=== PATIENT | male | born 1985 | race Caucasian/White ===

== ENCOUNTER 2016-09-25 19:28 | Emergency (ER) | payer OTHER ==
[2016-09-25 19:36] VITALS: BP 125/88
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
--- NOTE | 2016-09-25 22:47 | RAD ---
INDICATION: Right knee pain COMPARISON: None TECHNIQUE: AP and lateral views were obtained. FINDINGS: There are no acute bony findings. There is mild patellofemoral osteoarthritis. The medial and lateral joint spaces appear preserved. There is no significant effusion. IMPRESSION: MILD PATELLOFEMORAL OSTEOARTHRITIS
== END 2016-09-25 22:59 | disposition home or self-care (01) ==
LOC: ED 19:28
DX: M25.561 Pain in right knee (principal); I10 Essential (primary) hypertension; J45.909 Unspecified asthma, uncomplicated; F90.9 Attention-deficit hyperactivity disorder, unspecified type; F41.9 Anxiety disorder, unspecified; F31.9 Bipolar disorder, unspecified; Z86.19 Personal history of other infectious and parasitic diseases; F17.210 Nicotine dependence, cigarettes, uncomplicated
CPT/HCPCS: 99281

== ENCOUNTER 2016-10-09 23:53 | Inpatient (IN) | payer MEDICAID, OTHER ==
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
[2016-10-10 01:15] LABS: Hematocrit 42 % (42-52); Hemoglobin 13.9 g/dl (14.0-18.0); Mean Corpuscular HGB Conc 33 g/dl (31-36); Mean Corpuscular Hemoglobin 28 pg (27-31); Mean Corpuscular Volume 84 fL (80-94); Mean Platelet Volume 9 um3 (7.4-10.4); Red Blood Count 5.02 10^6/ul (4.0-5.4); Red Cell Distribution Width 15 % (10.5-15); White Blood Count 8.1 10^3/ul (3.5-10.8)
[2016-10-10 01:29] LABS: Urine Bilirubin Negative (Negative); Urine Glucose Negative (Negative); Urine Nitrite Negative (Negative)
[2016-10-10 01:32] LABS: ALT 66 U/L (7-52); AST 51 U/L (13-39); Acetaminophen < 15 mcg/mL; Albumin 4.3 g/dL (3.2-5.2); Alcohol < 10 mg/dL (<10); Alkaline Phosphatase 82 U/L (34-104); Anion Gap 6 mmol/L (2-11); Blood Urea Nitrogen 12 mg/dL (6-24); CO2 Carbon Dioxide 27 mmol/L (22-32); Calcium 9.4 mg/dL (8.6-10.3); Chloride 99 mmol/L (101-111); EGFR African American 123.4 (>60); Globulin 3.8 g/dL (2-4); Glucose 95 mg/dL (70-100); Salicylate < 2.50 mg/dL (<30); Sodium 132 mmol/L (133-145); Total Protein 8.1 g/dL (6.4-8.9)
[2016-10-10 01:42] LABS: TSH (Thyroid Stimulating Horm) 1.75 mcIU/mL (0.34-5.60)
[2016-10-10 01:44] LABS: Benzodiazepine Urine Screen None Detected (None Detect)
[2016-10-10] MEDS ORDERED: Mouth Piece, Nicotine* 1 EACH CARTRIDGE ONE (06:06)
[2016-10-10] MEDS: Nicotine Inhaler* 10 MG AMP INH PRN ×2 (06:10→07:46)
[2016-10-10] MEDS: ARIPiprazole TAB* 2 MG PO SCH (07:42)
[2016-10-10] MEDS: Sertraline* 100 MG TAB PO SCH (07:42)
[2016-10-10] MEDS: Lithium Carbonate ER* 450 MG TAB.ER PO SCH ×2 (07:43→22:49)
[2016-10-10] MEDS: cloNIDine TAB* 0.1 MG PO SCH ×3 (07:43→22:49)
[2016-10-10] MEDS: Gabapentin CAP(*) 400 MG PO SCH ×3 (07:45→17:25)
[2016-10-10] MEDS ORDERED: Loperamide CAP* 2 MG PO PRN (13:26)
[2016-10-10] MEDS ORDERED: Ondansetron TAB* 4 MG PO PRN (13:27)
[2016-10-10] MEDS ORDERED: Ibuprofen TAB* 800 MG PO PRN (13:27)
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
[2016-10-10] MEDS ORDERED: Gabapentin CAP(*) 400 MG PO SCH (21:00)
[2016-10-11] MEDS: Nicotine Inhaler* 10 MG AMP INH PRN (08:08)
[2016-10-11] MEDS: Lithium Carbonate ER* 450 MG TAB.ER PO SCH (08:09)
[2016-10-11] MEDS: cloNIDine TAB* 0.1 MG PO SCH (08:09)
[2016-10-11] MEDS: Sertraline* 100 MG TAB PO SCH (08:09)
[2016-10-11] MEDS: ARIPiprazole TAB* 2 MG PO SCH (08:09)
[2016-10-11] MEDS: Gabapentin CAP(*) 400 MG PO SCH (08:11)
[2016-10-11 08:18] VITALS: BP 104/59
--- NOTE | 2016-10-11 17:08 | DS ---
DISCHARGE SUMMARY: DATE OF ADMISSION: 10/10/16 DATE OF DISCHARGE: 10/11/16 DISCHARGE DIAGNOSES: Eagle I: Malingering, substance-induced mood disorder, opioid use disorder, alcohol use disorder. Eagle II: Antisocial personality traits. Eagle III: History of hepatitis C, femur fracture in 2004, chronic tendinitis in ankles and neck, degenerative disk disease, history of seizure disorder. Eagle IV: Severe primary support and legal stressors. Eagle V: At the time of admission was 34 and at the time of discharge is 49. CONDITION AT THE TIME OF DISCHARGE: Improved. The patient is no longer endorsing suicidal ideations. He is requesting release and stating that he will follow up with the [facility] He will also follow up with his outpatient psychiatrist Dr. Linda Member and his outpatient primary care provider Dr. Jaelyn Gao. Justification for the discharge is that it appears the patient was using this hospitalization for secondary gain in order to attempt to be placed back on opioid pain relief therapy. When it was clear that this treatment would not be provided to him, he immediately requested discharged and recanted all claims of suicidality. MENTAL STATUS EXAM: At the time of discharge, the patient is a young white male with thick rimmed glasses and a stylish haircut, who is somewhat disheveled , wearing jeans and a T-shirt. He appears to be somatic and in some physical discomfort. The patient is cooperative; however, his speech has normal rate, tone, and volume. Mood is euthymic with a full affect. Thought process is linear and goal directed. Thought content is significant for somatic complaints. He is denying suicidal ideations, denying homicidal ideations. Insight and judgment are limited given his somewhat dismissive attitude towards inpatient substance abuse rehab. Cognitively, he is awake and alert with what would appear to be an average intellect. DISCHARGE INSTRUCTIONS: To the patient are as follows: A. Medications: The patient is to continue taking gabapentin 800 mg p.o. b.i.d. and 1600 mg p.o. q.h.s., lithium carbonate extended release 450 mg p.o. b.i.d., Zoloft 100 mg p.o. daily, clonidine 0.3 mg p.o. t.i.d. B. Diet is regular. C. Activities: As tolerated. The patient is strongly encouraged to abstain from tobacco products; however, he is declining the offer of continued nicotine replacement therapy in the community, choosing to continue smoking cigarettes for the time being. There are no diagnostic studies pending at the time of discharge. D. Followup treatment: The patient will follow up next week at the [facility] here in [facility]. He also has followup appointments within the week with Dr. Alexei Munoz who is his psychiatrist and Dr. Jaelyn Gao who is his primary care provider. The patient is strongly encouraged to set up a meeting with his bank compliance officer, a woman named Vee Murrell as there are likely to be warrants for his arrest in 3 different local jurisdictions. HOSPITAL COURSE: A. Reason for admission: The patient is a 30-year-old single white male with a history of alcohol and opioid dependence as well as antisocial personality traits, who was well known to our unit due to between 7 and 10 prior psychiatric admissions here at the behavioral health unit with the most recent being in December 2015, who now returns having been brought in by his girlfriend complaining of suicidal ideations without a plan. The patient was guarded and vague in our emergency room, he was endorsing that he had suicidal ideations and stated that he was not going to any of his appointments, talking to people or leaving the house and this had been going on for approximately 1 week. He stated that he was thinking about killing himself because of some "bad news" that he recently got, but he stated that he would not elaborate on this with anyone other than his psychiatrist. When this clinician saw him, he states that he had missed some appointments at the [facility] where he is court mandated for treatment. He had called his outpatient primary care doctor, Dr. Edmond Gao, to make his regularly scheduled appointment, but was told by staff over the phone that Dr. Gao had decided to discontinue both his methadone and clonazepam secondary to the patient missing appointments at the [facility] The patient indicated that he has been residing with his girlfriend here in [place]. He denied using any illicit substances, although he did indicate that he had recently relapsed on alcohol over the past week, drinking several cans of alcohol-infused ice tea. Other than this, he denied any drug usage. His story did not match that of his primary care doctor, Dr. Edmond Gao, who is reached by telephone by this clinician. Dr. Gao indicates that he has had conversations with the patient's bank compliance officer, a woman named Vee Murrell and had found out through that person that Ray had been selling his methadone on the street and that he had been caught using IV drugs. A conservation between our social work staff and the patient's bank compliance officer further revealed that the patient has [address] charges in 3 different local jurisdictions. For example, in the town of [place], he has a charge for violating the order of protection which his mother put out. In the village of [place] he has active charges for drug related crimes, and in the [facility], he has a charge for burglarizing a store. At this time, my understanding is that the bank compliance officer is working on getting bench warrants from all 3 jurisdictions as a means for issuing a warrant for his arrest. The patient is complaining of multiple symptoms of opioid withdrawal, stating that he was uncomfortable and he certainly appeared to be in some physiological distress secondary to this. He also endorsed depressed mood and suicidal ideations, although he indicated that he has no specific plan for these. B. Psychiatric treatment rendered: The patient was admitted to the behavioral science unit where he was placed on q.30-minute checks for his own safety. For clonazepam withdrawal, he was placed on the so called [place] protocol; however, his vitals were normal throughout the hospitalization and he never required acute benzodiazepine therapy. Due to opioid withdrawal, we placed him on trials of Imodium, Zofran, and ibuprofen to make him more comfortable. We did inform the patient that because there is no longer an outpatient provider who is willing to continue prescribing controlled substances, we did not feel comfortable continuing this on an inpatient basis. When the patient found out that he was not going to be offered methadone, he became uncooperative and immediately requested discharge. His statement was that he had made up his story of suicidality to come to the hospital to get medication that his primary care provider was no longer willing to prescribe. It should be further noted that on the evening of 10/10/16, the patient was visited by his girlfriend. It was noted shortly after she left that there was a change in the patient's mental status. He became somnolent and was taken to his room where he slept throughout the night. After he fell asleep, it was discovered that a contraband tin of chewing tobacco was on his night stand next to his bed. For this reason, we decided to hold any further visitation from his girlfriend, although it is uncertain exactly what contraband items were brought in. We cannot rule out at this time that she brought in some type of controlled substance that he took. At any rate, the patient continues to demand discharge feeling as though we were not treating his pain adequately. I did speak with Dr. Gao who indicates that he is willing to continue providing primary care services to Mr. Briones and Mr. Briones was able to receive followup appointments with both Dr. Alexei Munoz and the [facility] There are no active warrants at this time; however, we encouraged him to speak with his bank compliance officer to avoid any further legal problems after discharge. At this point, the patient continues to be somewhat of a risk to himself because he is actively abusing substances and acting in a criminal and antisocial fashion in the Community. He is educated, however, that the hospital is not the place to come to receive opioids and that he will need to put work into repairing the relationship with his outpatient providers. [id number]/CPS #: [id number] BAL
== END 2016-10-11 13:10 | disposition home or self-care (01) | DRG 773 ==
LOC: ED 23:53 → BSU 10-10 05:45
PROVIDERS: ADMIT Psychiatry & Neurology Psychiatry; ATTEND Psychiatry & Neurology Psychiatry
DX: F19.14 Other psychoactive substance abuse with psychoactive substance-induced mood disorder (principal); F11.99 Opioid use, unspecified with unspecified opioid-induced disorder; R45.851 Suicidal ideations; F10.10 Alcohol abuse, uncomplicated; Y90.0 Blood alcohol level of less than 20 mg/100 ml; Z76.5 Malingerer [conscious simulation]; M51.37 Other intervertebral disc degeneration, lumbosacral region; G40.909 Epilepsy, unspecified, not intractable, without status epilepticus; F17.200 Nicotine dependence, unspecified, uncomplicated; Z79.899 Other long term (current) drug therapy; Z81.1 Family history of alcohol abuse and dependence; Z81.8 Family history of other mental and behavioral disorders
CPT/HCPCS: 36415; 80053; 80307; 80320; 80329; 81003; 84443; 85025; 99222; 99238; A9270-GY; G0480

== ENCOUNTER 2017-07-18 18:30 | Emergency (ER) | payer MEDICAID, OTHER ==
[2017-07-18 19:42] LABS: ABS Basophils 0 10^3/ul (0-0.2); ABS Eosinophils 0 10^3/ul (0-0.6); ABS Lymphocytes 1.5 10^3/ul (1.0-4.8); ABS Monocytes 0.3 10^3/ul (0-0.8); ABS Neutrophils 8.4 10^3/ul (1.5-7.7); ABS Nucleated RBC 0 10^3/ul; Eosinophil % 0.1 % (0-6); Hematocrit 43 % (42-52); Lymphocyte % 14.9 % (25-47); Mean Corpuscular HGB Conc 35 g/dl (31-36); Mean Corpuscular Hemoglobin 29 pg (27-31); Mean Corpuscular Volume 84 fL (80-94); Mean Platelet Volume 9.2 um3 (7.4-10.4); Nucleated Red Blood Cells % 0; Platelet Count 173 10^3/ul (150-450); Red Blood Count 5.16 10^6/ul (4.0-5.4); Red Cell Distribution Width 14 % (10.5-15); White Blood Count 10.3 10^3/ul (3.5-10.8)
[2017-07-18 19:58] LABS: EGFR Non-African American 103.1 (>60)
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
[2017-07-18 21:43] LABS: Urine Appearance Clear; Urine Blood Negative (Negative); Urine Color Colorless; Urine Ketones Negative (Negative); Urine Protein Negative (Negative); Urine Specific Gravity 1.002 (1.010-1.030); Urine Urobilinogen Negative (Negative)
[2017-07-18] MEDS: Gabapentin CAP(*) 400 MG PO SCH (22:36)
[2017-07-18] MEDS: cloNIDine TAB* 0.1 MG PO SCH (22:37)
[2017-07-18] MEDS: Sertraline* 100 MG TAB PO SCH (22:37)
[2017-07-19] MEDS: Sertraline* 100 MG TAB PO SCH (08:20)
[2017-07-19] MEDS: cloNIDine TAB* 0.1 MG PO SCH (08:20)
[2017-07-19] MEDS: Gabapentin CAP(*) 400 MG PO SCH (08:21)
--- NOTE | 2017-07-19 08:48 | PN ---
ED Flex Patient Progress Note Subjective: This is a 31 year-old M who is pending transfer to another psychiatric facility secondary to SI . Pt offers no complaints at this time. Slept last night - has not eaten breakfast yet but tray is sitting at his bedside. Denies physical complaints, especially chest pain, jaw pain, arm pain, SOB, dyspnea, fatigue, dental pain. Objective: Vitals: Most recent vital signs documented below. General NAD, Alert and oriented x3. Lying in bed w/ lights out upon entrance. Heart: S1/S2, RRR Lungs: BREATHING EASILY Integ: warm and dry, appears well perfused ECG: NSR w/ early repolarization (see details on scanned ECG tracing read by Dr. Philip) Assessment: SI Plan: Pending psychiatric transfer. Will follow up daily __while in ED___. Vital Signs Temp Pulse Resp BP Pulse Ox 97.7 F 58 16 101/61 96 07/19/17 07:59 07/19/17 07:59 07/19/17 07:59 07/19/17 07:59 07/19/17 00:19 Lab Results - Entire Visit 07/18/17 07/18/17 07/18/17 20:50 20:50 19:35 WBC 10.3 RBC 5.16 Hgb 15.0 Hct 43 MCV 84 MCH 29 MCHC 35 RDW 14 Plt Count 173 MPV 9.2 Neut % (Auto) 81.2 Lymph % (Auto) 14.9 L [place] % (Auto) 3.4 Eos % (Auto) 0.1 Baso % (Auto) 0.4 Absolute Neuts (auto) 8.4 H Absolute Lymphs (auto) 1.5 Absolute Monos (auto) 0.3 Absolute Eos (auto) 0 Absolute Basos (auto) 0 Absolute Nucleated RBC 0 Nucleated RBC % 0 Sodium Potassium Chloride Carbon Dioxide Anion Gap BUN Creatinine Est GFR ( Amer) Est GFR (Non-Af Amer) BUN/Creatinine Ratio Glucose Calcium Total Bilirubin AST ALT Alkaline Phosphatase Total Protein Albumin Globulin Albumin/Globulin Ratio TSH Urine Color Colorless Urine Appearance Clear Urine pH 6.0 Ur Specific [place] 1.002 L Urine Protein Negative Urine Ketones Negative Urine Blood Negative Urine Nitrate Negative Urine Bilirubin Negative Urine Urobilinogen Negative Ur Leukocyte Esterase Negative Urine Glucose Negative Salicylates Urine Opiates Screen None detected Acetaminophen Ur Barbiturates Screen None detected Ur Phencyclidine Scrn None detected Ur Amphetamines Screen None detected U Benzodiazepines Scrn None detected Urine Cocaine Screen None detected U Cannabinoids Screen None detected Serum Alcohol 07/18/17 19:35 WBC RBC Hgb Hct MCV MCH MCHC RDW Plt Count MPV Neut % (Auto) Lymph % (Auto) [place] % (Auto) Eos % (Auto) Baso % (Auto) Absolute Neuts (auto) Absolute Lymphs (auto) Absolute Monos (auto) Absolute Eos (auto) Absolute Basos (auto) Absolute Nucleated RBC Nucleated RBC % Sodium 136 Potassium 3.9 Chloride 103 Carbon Dioxide 25 Anion Gap 8 BUN 15 Creatinine 0.86 Est GFR ( Amer) 132.5 Est GFR (Non-Af Amer) 103.1 BUN/Creatinine Ratio 17.4 Glucose 103 H Calcium 9.6 Total Bilirubin 0.50 AST 36 ALT 49 Alkaline Phosphatase 76 Total Protein 7.9 Albumin 4.5 Globulin 3.4 Albumin/Globulin Ratio 1.3 TSH 0.89 Urine Color Urine Appearance Urine pH Ur Specific [place] Urine Protein Urine Ketones Urine Blood Urine Nitrate Urine Bilirubin Urine Urobilinogen Ur Leukocyte Esterase Urine Glucose Salicylates < 2.50 Urine Opiates Screen Acetaminophen < 15 Ur Barbiturates Screen Ur Phencyclidine Scrn Ur Amphetamines Screen U Benzodiazepines Scrn Urine Cocaine Screen U Cannabinoids Screen Serum Alcohol < 10
--- NOTE | 2017-07-19 13:14 | PN ---
Subjective - Subjective Date of Service: 07/19/17 Service Type: 21636 Hosp care 25 min moderate complexity Subjective: Josue is a 31 y/o WM with h/o substance use d/o who came to the [facility] complaining of Suicidal thought and a plan to OD on meds in the context of multiple psychosocial stress. He continues to verbalize suicidal intents and requesting admission. Also reports of unspecified legal problems. Objective - Appearance Appearance: Healthy Appearing Dysmorphic Features: No Hygiene: Mal-odorous Grooming: Disheveled - Behavior Psychomotor Activities: Abnormal-Decreased Exhibits Abnormal Movement: No - Attitude and Relatedness Attitude and Relatedness: Appropriate Eye Contact: Fair - Speech Quality: Unpressured Latencies: Normal Quantity: Appropriate - Mood Patient's Decription of Mood: "Terrible" - Affect Observed Affect: Depressed - Thought Process Patient's Thought Process: Coherent, Goal Directed Thought Content: Yes Passive Wish, Yes Suicidal Planning - OD, No Homicidal Ideation, No Paranoid Ideation - Sensorium Experiencing Hallucinations: No, Sensorium is Clear Type of Hallucinations: Visual: No, Auditory: No, Command: No - Level of Consciousness Level of Consciousness: Alert Orientation: Yes Intact, Yes Orientated to Time, Yes Orientated to Place, Yes Orientated to Person - Impulse Control Impulse Control: Intact - Insight and Judgement Insight and Judgement: Fair Assessment - Assessment Merits Inpatient Hospitalization: For Immediate Safety, Pending Safe DC Plan Clinical Impression: 31 y/o male with h/o substance use d/o in the [facility] awaiting transfer to psych unit due to suicidal thoughts. Plan - Plan Treatment Plan: Name: [facility] Birthdate: 1985 [id number] Continued Medication Management: Continue Outpt Medication Medications: Current Medications Clonidine HCl (Catapres Tab*) 0.3 mg PO BID [facility] Last Admin: 07/19/17 08:20 Dose: 0.3 mg Gabapentin (Neurontin Cap(*)) 800 mg PO BID [facility] Last Admin: 07/19/17 08:21 Dose: 800 mg Sertraline HCl (Zoloft*) 100 mg PO BID [facility] Last Admin: 07/19/17 08:20 Dose: 100 mg - Discharge Plan Discharge Plan: Inpatient Hospitalization
[2017-07-19 15:45] VITALS: BP 102/59
== END 2017-07-19 16:43 ==
LOC: ED 18:30
DX: F32.9 Major depressive disorder, single episode, unspecified (principal); R45.851 Suicidal ideations
CPT/HCPCS: 36415; 80053; 80307; 80320; 80329; 81003; 84443; 85025; 93005; 99283; A9270-GY; G0480

== ENCOUNTER 2018-01-25 10:54 | Emergency (ER) | payer OTHER ==
[2018-01-25 11:06] VITALS: BP 131/92
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
[2018-01-25] MEDS ORDERED: Albuterol/Ipratropium NEB.SOL* Albuterol 2.5 MG/Ipratropium 0.5 MG 3 ML INH ONE (11:14)
--- NOTE | 2018-01-25 11:46 | RAD ---
HISTORY: Cough COMPARISONS: April 11, 2013 VIEWS: 4: Frontal dual-energy and lateral views of the chest. FINDINGS: CARDIOMEDIASTINAL SILHOUETTE: The cardiomediastinal silhouette is normal. ALEXEY: The alexey are normal. PLEURA: The costophrenic angles are sharp. No pleural abnormalities are noted. LUNG PARENCHYMA: There is minimal linear atelectasis versus pleuroparenchymal scarring of the left midlung. ABDOMEN: The upper abdomen is clear. There is no subphrenic gas. BONES AND SOFT TISSUES: No bone or soft tissue abnormalities are noted. OTHER: None. IMPRESSION: NO ACTIVE CARDIOPULMONARY DISEASE.
== END 2018-01-25 11:56 | disposition home or self-care (01) ==
LOC: UCEAST 10:54
DX: J32.9 Chronic sinusitis, unspecified (principal); J40 Bronchitis, not specified as acute or chronic; F31.9 Bipolar disorder, unspecified; F17.210 Nicotine dependence, cigarettes, uncomplicated
CPT/HCPCS: 71046; 99212; A9270-GY; G0463

== ENCOUNTER 2018-06-05 14:46 | Emergency (ER) | payer OTHER ==
[2018-06-05 15:15] VITALS: BP 148/95
[2018-06-05] MEDS ORDERED: Albuterol/Ipratropium NEB.SOL* Albuterol 2.5 MG/Ipratropium 0.5 MG 3 ML INH ONE (15:29)
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
== END 2018-06-05 16:03 | disposition home or self-care (01) ==
LOC: UCEAST 14:46
DX: J40 Bronchitis, not specified as acute or chronic (principal); F17.210 Nicotine dependence, cigarettes, uncomplicated
CPT/HCPCS: 71046; 99212; A9270-GY; G0463

== ENCOUNTER 2018-09-22 12:14 | Emergency (ER) | payer OTHER ==
[2018-09-22 13:43] VITALS: BP 137/92
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
== END 2018-09-22 16:24 | disposition home or self-care (01) ==
LOC: UCEAST 12:14
DX: J01.90 Acute sinusitis, unspecified (principal); I10 Essential (primary) hypertension; B96.89 Other specified bacterial agents as the cause of diseases classified elsewhere; B37.0 Candidal stomatitis; F17.210 Nicotine dependence, cigarettes, uncomplicated
CPT/HCPCS: 71046; 99212; G0463

== ENCOUNTER 2019-01-21 21:50 | Emergency (ER) | payer OTHER ==
[2019-01-21] MEDS ORDERED: NS 0.9% 1000 ML** 1,000 ML IV ONE (22:03)
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
[2019-01-21 23:02] LABS: ABS Lymphocytes 1.3 10^3/ul (1.0-4.8); ABS Monocytes 0.9 10^3/ul (0-0.8); ABS Neutrophils 9.1 10^3/ul (1.5-7.7); Eosinophil % 0.2 %; Hematocrit 44 % (42-52); Lymphocyte % 11.5 %; Mean Corpuscular HGB Conc 34 g/dL (31-36); Mean Corpuscular Hemoglobin 30 pg (27-31); Mean Corpuscular Volume 87 fL (80-94); Mean Platelet Volume 8.5 fL (7.4-10.4); Nucleated Red Blood Cells % 0.1; Platelet Count 175 10^3/uL (150-450); Red Blood Count 5.04 10^6 /uL (4.18-5.48); Red Cell Distribution Width 13 % (10-15); White Blood Count 11.4 10^3/uL (3.5-10.8)
[2019-01-21 23:11] LABS: INR 1.1 (0.82-1.09)
[2019-01-21 23:17] LABS: ALT 83 U/L (7-52); AST 45 U/L (13-39); Albumin 4.8 g/dL (3.2-5.2); Albumin/Globulin Ratio 1.6 (1-3); Alkaline Phosphatase 76 U/L (34-104); Anion Gap 7 mmol/L (2-11); BUN/Creatinine Ratio 20.7 (8-20); Blood Urea Nitrogen 18 mg/dL (6-24); CO2 Carbon Dioxide 27 mmol/L (22-32); Calcium 9.4 mg/dL (8.6-10.3); Chloride 103 mmol/L (101-111); EGFR African American 121.5 (>60); EGFR Non-African American 100.4 (>60); Glucose 92 mg/dL (70-100); Potassium 4.2 mmol/L (3.5-5.0); Sodium 137 mmol/L (135-145); Total Protein 7.8 g/dL (6.4-8.9); Troponin I 0.01 ng/mL (<0.04)
--- OUTSIDE RECORDS SUMMARY | 2019-01-21 23:17 | XMS REPORT | Continuity of Care Document ---
:1985 External Reference #:[id number] Author Name Kiran Rodriguez NP (transmitted by agent of provider Paulette Lennon) Address [address], [place] [address] Care Team Providers Name Role Phone Casey Matson MD - Orthopaedic Care Team Information Customer Service Assistant [facility] - Pain Care Team Information Customer Service Assistant [phone] Maulik Butler MD - Urology Care Team Information Customer Service Assistant [phone] [facility] - Care Team Information Customer Service Assistant Pain Dino Serna MD - Physical Care Team Information Customer Service Assistant Medicine & Rehabilitation Alexei Munoz MD - Child & Care Team Information Customer Service Assistant [phone] Adolescent Psychiatry Anuja Washington MD - Internal Medicine Care Team Information Customer Service Assistant Deepak Bee MD - Infectious Care Team Information Customer Service Assistant Disease Problems Active Problems Provider Date Posttraumatic stress disorder Edmond Gao M.D.,FACP Onset: 10/07/2013 Chronic hepatitis C Edmond Gao M.D.,FACP Onset: 06/12/2012 Chronic pain due to injury Edmond Gao M.D.,FACP Onset: 06/29/2007 Note: RT femur frx Tobacco user Edmond Gao M.D.,FACP Onset: 06/29/2007 Note: 1/2 PPD Chronic alcoholism in remission Edmond Gao M.D.,FACP Onset: 2007 Opioid dependence in remission Edmond Gao M.D.,FACP Onset: 02/05/2008 Arthralgia of the ankle and/or foot Edmond Gao M.D.,FACP Onset: 03/08 Attention deficit hyperactivity Edmond Gao M.D.,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, predominantly inattentive type Allergic asthma without status Edmond Gao M.D.,FACP Onset: 05/05/2013 asthmaticus Antisocial personality disorder Edmond Gao M.D.,FACP Onset: 2015 Depressed bipolar I disorder in Edmond Gao M.D.,FACP Onset: 2015 partial remission Bladder dysfunction Edmond Gao M.D.,FACP Onset: 12/10/2017 Note: shy Social History Type Date Description Comments Sex Unknown Tobacco Use Start: Unknown Current Cigarette Smoker 5-10 Cigarettes Daily ETOH Use 03/13/2016 Has consumed alcohol in abuse, quit 08, in the past drug court ETOH Use 12/30/2014 Occasionally consumes alcohol Recreational Drug Use Denies Drug Use treated for oral opiate addiction 2007 Tobacco Use Start: Unknown Patient is a current smoker, smokes some days Tobacco Use Start: Unknown Light tobacco smoker (10 or fewer cigarettes/day) Smoking Status Reviewed: 12/07/18 Light tobacco smoker (10 or fewer cigarettes/day) Allergies, Adverse Reactions, Alerts Active Allergies Reaction Severity Comments Date Trazodone restless legs 07/17/2011 Inactive Allergies Flomax very tired, dizzy 10/19/2008 Medications Active Medications SIG Qnty Indications Ordering Provider Date Gabapentin take 1 tablet by 120tabs G89.21 Kiran Rodriguez NP 03/13/2016 800mg mouth 3 times a Tablets day Ventolin HFA inhale 2 puffs 18gm Edmond Muller 03/12/2016 orally four Christina Gao FACP 108(90Base) mcg/Act times a day as Aerosol needed Sertraline HCL Take 1 Tablet 30tabs Edmond Muller 09/19/2015 100mg Every Day [place], M.D.,FACP Tablets [place] Carbonate ER 1 tab bid 90tabs Edmond Muller Christina Gao,FACP 450mg Tablets ER Clonidine HCL 1 po tid Vic Ramirez, 0.1mg MD Tablets Prazosin HCL Vic Ramirez, 5mg MD Capsules Suboxone 1 film SL twice KarmaAshley teixeira 8-2mg Film daily MD Micaela History Medications Azithromycin 2 every day for 6tabs Edmond Gao, 07/09/2018 - 250mg Tablets 1 day, then 1 M.DSaleem,FACP 07/14/2018 every day Immunizations CPT Code Status Date Vaccine Reaction Lot # [id number] Given 02/09/2018 Tdap - no immediate reaction xr2mr Tetanus/Diptheria/Acellular noted Pertussis 36130 Given 02/09/2018 Influenza Virus Vaccine, no immedicate reaction [id number] Quadrivalent, Split, noted Preservative Free 73534 Given 03/13/2016 Pneumonia Vaccine [id number] 78812 Given 03/13/2016 Hepatitis A Vaccine Adult [id number] Dosage 45156 Given 01/05/2016 Influ Virus Vaccine, Quadrivalent, Split Virus, [place] [address] Given 01/28/2014 Influenza Virus Vaccine, [id number] Quadrivalent, Split, Preservative Free Q2037 Given 05/05/2013 Fluvirin Im 3Yrs And Older no immediate reaction [id number] noted Q2037 Given 04/15/2012 Fluvirin Im 3Yrs And Older [id number] 40438 Given 04/15/2012 Influenza Virus 3Yrs & Over 30708 Given 03/01/2011 Influenza Virus 3Yrs & Over [id number] 51672 Given 04/24/2010 Influenza Virus 3Yrs & Over [id number] 35792 Given 05/26/2009 Influenza Virus 3Yrs & Over [id number] 10612 Given 03/08/2009 Influenza Virus Vaccine, [id number] Pandemic Formulation 40847 Given 03/08/2009 Administration Swine Flu Shot 55346 Given 07/24/2006 Tetanus And Diptheria (Td) For Adult Use Preservative Free Vital Signs Date Vital Result Comment 12/07/2018 2:47pm Height 71 inches 5'11" Weight 222.12 lb Heart Rate 82 /min BP Systolic 150 mmHg BP Diastolic 87 mmHg Body Temperature 98.0 F O2 % BldC Oximetry 92 % BMI (Body Mass Index) 31.0 kg/m2 07/09/2018 2:25pm Height 70 inches 5'10" Weight 222.00 lb Heart Rate 88 /min BP Systolic 140 mmHg BP Diastolic 80 mmHg Body Temperature 98.3 F O2 % BldC Oximetry 93 % BMI (Body Mass Index) 31.9 kg/m2 Results Description No Information Available Procedures Description No Information Available Medical Devices Description No Information Available Encounters Type Date Location Provider Dx Diagnosis Office Visit 07/09/2018 [facility] Edmond Gao, J40 Bronchitis, not 2:10p Medicine - [address] MFlorencia,FACP specified as acute or chronic Z72.0 Tobacco use F11.20 Opioid dependence, uncomplicated B18.2 Chronic viral hepatitis C Assessments Date Code Description Provider 12/07/2018 M79.604 Pain in right leg Kiran Rodriguez NP 07/09/2018 J40 Bronchitis, not specified as acute or Edmond Gao M.D. ,FACP chronic 07/09/2018 Z72.0 Tobacco use Edmond Gao M.D.,FACP 07/09/2018 F11.20 Opioid dependence, uncomplicated Edmond Gao M.D., FACP 07/09/2018 B18.2 Chronic viral hepatitis C Edmond Gao M.D.,[facility] Plan of Treatment 12/07/2018 - Kiran Rodriguez NPM79.604 Pain in right legComments:Have the xrays done soon.I have referred you to orthopedics for further evaluation.Referral: Ritu Madrigal MD, Surgery,Ortho Adult Recon Functional Status Description No Information Available Mental Status Description No Information Available Referrals Refer to Reason for Referral Status Appt Date Ritu Madrigal MD Sent [address] [place] [address] [place] [address] [phone]
--- OUTSIDE RECORDS SUMMARY | 2019-01-21 23:17 | XMS REPORT | Continuity of Care Document ---
:1985 External Reference #:[id number] Author Name Ritu Madrigal M.D. (transmitted by agent of provider Angelica Mernio) Address [address] [place] [id number] Care Team Providers Name Role Phone Casey Matson MD - Orthopaedic Care Team Information Equipment Operator/Laborer/Supervisor [phone] [facility] - Pain Care Team Information Equipment Operator/Laborer/Supervisor [phone] Maulik Butler MD - Urology Care Team Information Equipment Operator/Laborer/Supervisor [phone] [facility] - Care Team Information Equipment Operator/Laborer/Supervisor [phone] Pain Dino Serna MD - Physical Care Team Information Equipment Operator/Laborer/Supervisor Medicine & Rehabilitation Alexei Munoz MD - Child & Care Team Information Equipment Operator/Laborer/Supervisor [phone] Adolescent Psychiatry Anuja Washington MD - Internal Medicine Care Team Information Equipment Operator/Laborer/Supervisor Deepak Bee MD - Infectious Care Team Information Equipment Operator/Laborer/Supervisor Disease Problems Active Problems Provider Date Posttraumatic [...] (10 or fewer cigarettes/day) Smoking Status Reviewed: 12/18/18 Light tobacco smoker (10 or fewer cigarettes/day) Exercise Type/Frequency Exercises sporadically Allergies, Adverse Reactions, Alerts Active Allergies Reaction Severity Comments Date Trazodone restless legs 07/17/2011 Inactive Allergies Flomax very tired, dizzy 10/19/2008 Medications Active Medications SIG Qnty Indications Ordering Date Provider Gabapentin take 1 tablet by 120tabs G89.21 Kiran Rodriguez NP 03/13/2016 800mg mouth 3 times a Tablets day Ventolin HFA inhale 2 puffs 18gm Edmond Muller 03/12/2016 orally four times Christina Gao,FACMelvin 108(90Base) mcg/Act a day as needed Aerosol Sertraline HCL Take 1 Tablet 30tabs Edmond Muller 09/19/2015 100mg Every Day Christina Gao,FACP Tablets [place] Carbonate ER 1 tab bid 90tabs Edmond Muller Christina Gao,FACP 450mg Tablets ER Clonidine HCL 1 po tid Vic Ramirez, 0.1mg MD Tablets Prazosin HCL Vic Ramirez, 5mg MD Capsules Seroquel take 1 by mouth at Unknown 25mg Tablets bedtime. if not effective for sleep increase to two tablets after a week. History Medications Azithromycin 2 every day for 6tabs Edmond Gao, 07/09/2018 - 250mg Tablets 1 day, then 1 M.DSaleem,FACP 07/14/2018 every day Immunizations CPT Code Status Date Vaccine Reaction Lot # [id number] Given 02/09/2018 Tdap - no immediate reaction xr2mr Tetanus/Diptheria/Acellular noted Pertussis 19965 Given 02/09/2018 Influenza Virus Vaccine, no immedicate reaction [id number] Quadrivalent, Split, noted Preservative Free 19041 Given 03/13/2016 Pneumonia Vaccine [id number] 30262 Given 03/13/2016 Hepatitis A Vaccine Adult [id number] Dosage 62652 Given 01/05/2016 Influ Virus Vaccine, Quadrivalent, Split Virus, [place] [address] Given 01/28/2014 Influenza Virus Vaccine, [id number] Quadrivalent, Split, Preservative Free Q2037 Given 05/05/2013 Fluvirin Im 3Yrs And Older no immediate reaction [id number] noted Q2037 Given 04/15/2012 Fluvirin Im 3Yrs And Older [id number] 92896 Given 04/15/2012 Influenza Virus 3Yrs & Over 21527 Given 03/01/2011 Influenza Virus 3Yrs & Over [id number] 98512 Given 04/24/2010 Influenza Virus 3Yrs & Over [id number] 30835 Given 05/26/2009 Influenza Virus 3Yrs & Over [id number] 58150 Given 03/08/2009 Influenza Virus Vaccine, [id number] Pandemic Formulation 27179 Given 03/08/2009 Administration Swine Flu Shot 76647 Given 07/24/2006 Tetanus And Diptheria (Td) For Adult Use Preservative Free Vital Signs Date Vital Result Comment 12/18/2018 9:14am Height 71 inches 5'11" Weight 222.00 lb Heart Rate 76 /min BP Systolic 128 mmHg BP Diastolic 86 mmHg Pain Level 7 BMI (Body Mass Index) 31.0 kg/m2 12/07/2018 2:47pm Height 71 inches 5'11" Weight 222.12 lb Heart Rate 82 /min BP Systolic 150 mmHg BP Diastolic 87 mmHg Body Temperature 98.0 F O2 % BldC Oximetry 92 % BMI (Body Mass Index) 31.0 kg/m2 Results Description No Information Available Procedures Description No Information Available Medical Devices Description No Information Available Encounters Type Date Location Provider Dx Diagnosis Office Visit 12/18/2018 Orthopedic Ritudenny Madrigal, M25.551 Pain in right hip 8:[facility] M79.651 Pain in right thigh M62.81 Muscle weakness (generalized) Office Visit 12/07/2018 2:40p [facility] Internal Kiran Rodriguez, M79.604 Pain in right leg Medicine - [facility] NURSING PROFESSOR Office Visit 07/09/2018 2:10p [facility] Internal Edmond Muller J40 Bronchitis, not Medicine - [address], specified as R M.D.,FACP acute or chronic Z72.0 Tobacco use F11.20 Opioid dependence, uncomplicated B18.2 Chronic viral hepatitis C Assessments Date Code Description Provider 12/18/2018 M25.551 Pain in right hip Ritu Madrigal M.D. 12/18/2018 M79.651 Pain in right thigh Ritu Madrigal M.D. 12/18/2018 M62.81 Muscle weakness (generalized) Ritu Madrigal M.D. 12/07/2018 M79.604 Pain in right leg Kiran Jennifer, NURSING PROFESSOR 07/09/2018 J40 Bronchitis, not specified as acute or Edmond Gao M.D. ,FACP chronic 07/09/2018 Z72.0 Tobacco use Edmond Gao M.D.,FACP 07/09/2018 F11.20 Opioid dependence, uncomplicated Edmond Gao M.D., FACP 07/09/2018 B18.2 Chronic viral hepatitis C Edmond Gao M.D.,FACP Plan of Treatment 12/18/2018 - Ritu Madrigal M.D.M25.551 Pain in right hipFollow up:Follow up: As slfsjqN77.651 Pain in right thighReferral:Pain Clinic, Pain/Clinic/CTRM62.81 Muscle weakness (generalized) Functional Status Description No Information Available Mental Status Description No Information Available Referrals Refer to Reason for Referral Status Appt Date Pain Clinic eval chronic pain s/p R femur fx Created [address] [place] [address] [phone] Ritu Madrigal MD Sent 12/18/[address] [place] [address] [place] [address] [phone]
[2019-01-21 23:41] LABS: Acetaminophen < 15 mcg/mL; Alcohol < 10 mg/dL (<10); Salicylate < 2.50 mg/dL (<30)
[2019-01-21 23:48] LABS: Urine Appearance Clear; Urine Bilirubin Negative (Negative); Urine Blood Negative (Negative); Urine Color Yellow; Urine Glucose Negative (Negative); Urine Ketones Negative (Negative); Urine Nitrite Negative (Negative); Urine Protein Negative (Negative); Urine Specific Gravity 1.019 (1.010-1.030); Urine Urobilinogen Negative (Negative)
[2019-01-21 23:57] LABS: TSH (Thyroid Stimulating Horm) 2.05 mcIU/mL (0.34-5.60)
[2019-01-22 00:01] LABS: Urine Benzodiazepine Screen Presumptive Positive (None Detect); Urine Opiates Screen Presumptive Positive (None Detect)
--- NOTE | 2019-01-22 07:22 | ED ---
Progress - Progress Note Progress Note: Pt is a signout from Dr. Lam at 0700 on 01/22/19 pending sobriety. Re-Evaluation - Re-Evaluation First Eval Re-Evaluation Time: 07:20 Change: Unchanged Comment: Pt is sleeping comfortably. He is arousable to voice, appears under the influence of many substances. He has no complaints at this time. Course/Dx - Course Course Of Treatment: Patient is a 33-year-old male who was signed out by Dr. Lam at shift change. As per the report from Dr. Lam the patient has Opiates, Benzodiazepines, Cocaine and Marijuana in his system. Dr. Lam requests to discharge the patient home when the patient becomes sober. At approximately 10:30 AM the patient is alert and oriented 3. The patient is sitting up drinking without any nausea or vomiting. The patient was ambulating with steady walk. The patient was discharged home with his mother. Patient is hemodynamically stable. - Diagnoses Provider Diagnoses: Drug abuse Discharge ED - Sign-Out/Discharge Documenting (check all that apply): Patient Departure, Receiving Sign-Out Receiving patient FROM: Ivana Lam Patient Received Moderate/Deep Sedation with Procedure: No - Discharge Plan Condition: Stable Disposition: HOME Referrals: Kiran Rodriguez NP [Primary Care Provider] - Additional Instructions: Please follow up with your primary care provider within the next 2-3 days. Return to the emergency department with any new or worsening symptoms. - Billing Disposition and Condition Condition: STABLE Disposition: Home - Attestation Statements Document Initiated by Scribe: Yes Documenting Scribe: lAyssa Evans Provider For Whom Caro is Documenting (Include Credential): Damien Orr MD. Scribe Attestation: Alyssa Barrow, saraed for Damien Orr MD. on 01/25/19 at 1119. Scribe Documentation Reviewed: Yes Provider Attestation: The documentation as recorded by the Alyssa webster accurately reflects the service I personally performed and the decisions made by me, Damien Orr MD. Status of Scribe Document: Viewed
[2019-01-22 10:16] VITALS: BP 156/93
== END 2019-01-22 10:03 | disposition home or self-care (01) ==
LOC: ED 21:50
DX: F11.10 Opioid abuse, uncomplicated (principal); F14.10 Cocaine abuse, uncomplicated; F12.10 Cannabis abuse, uncomplicated; F19.10 Other psychoactive substance abuse, uncomplicated; Z79.899 Other long term (current) drug therapy
CPT/HCPCS: 36415; 80053; 80307; 80320; 80329; 81003; 83605; 84443; 84484; 85025; 85610; 87040; 93005; 96360; 96361; 99285; G0480

== ENCOUNTER 2019-11-09 23:47 | Observation (INO) ==
[2019-11-10] MEDS ORDERED: NS 0.9% 1000 ml BAG 1,000 ML IV ONE ×3 (00:06→02:19)
[2019-11-10] MEDS ORDERED: Lorazepam PYXIS KEY PRN ×3 (00:33→05:27)
[2019-11-10] MEDS ORDERED: LORazepam 2 mg VIAL 1 ml IV PUSH ONE ×2 (00:33→00:53)
[2019-11-10] MEDS ORDERED: LORazepam 2 mg VIAL 1 ml ONE (00:34)
[2019-11-10] MEDS ORDERED: Lorazepam PYXIS KEY ONE (00:34)
[2019-11-10 01:00] LABS: Urine Appearance Clear; Urine Bilirubin Negative (Negative); Urine Blood Negative (Negative); Urine Color Yellow; Urine Glucose Negative (Negative); Urine Ketones Negative (Negative); Urine Nitrite Negative (Negative); Urine Protein Negative (Negative); Urine Specific Gravity 1.008 (1.010-1.030); Urine Urobilinogen Negative (Negative)
[2019-11-10 01:03] LABS: Hematocrit 52 % (42-52); Hemoglobin 18.1 g/dL (14.0-18.0); Mean Corpuscular HGB Conc 35 g/dL (31-36); Mean Corpuscular Hemoglobin 31 pg (27-31); Mean Corpuscular Volume 90 fL (80-94); Mean Platelet Volume 9.7 fL (7.4-10.4); Platelet Count 227 10^3/uL (150-450); Red Blood Count 5.82 10^6 /uL (4.18-5.48); Red Cell Distribution Width 15 % (10-15); White Blood Count 12.8 10^3/uL (3.5-10.8)
[2019-11-10 01:05] LABS: INR 1.06 (0.82-1.09)
[2019-11-10 01:14] LABS: Urine Benzodiazepine Screen Presumptive Positive (None Detect); Urine Cannabinoids Screen Presumptive Positive (None Detect); Urine Opiates Screen None Detected (None Detect)
[2019-11-10 01:24] LABS: ALT 78 U/L (7-52); Albumin/Globulin Ratio 1.3 (1-3); Alkaline Phosphatase 90 U/L (34-104); BUN/Creatinine Ratio 8.2 (8-20); Blood Urea Nitrogen 8 mg/dL (6-24); Calcium 10.1 mg/dL (8.6-10.3); Chloride 101 mmol/L (101-111); Creatine Kinase 48 U/L (10-223); EGFR African American 105.9 (>60); EGFR Non-African American 87.6 (>60); Globulin 3.8 g/dL (2-4); Glucose 111 mg/dL (70-100); Magnesium 2.4 mg/dL (1.9-2.7); Sodium 140 mmol/L (135-145); Total Protein 8.8 g/dL (6.4-8.9)
[2019-11-10 01:28] LABS: Alcohol, S < 10 mg/dL (<10)
[2019-11-10 01:43] LABS: TSH Ultra Thyroid Stim Horm 4.36 mcIU/mL (0.34-5.60)
[2019-11-10 01:47] LABS: Anion Gap 24 mmol/L (2-11); CO2 Carbon Dioxide 15 mmol/L (22-32)
[2019-11-10 02:51] LABS: ABS Eosinophils 0.3 10^3/ul (0-0.6); ABS Lymphocytes 5.7 10^3/ul (1.0-4.8); ABS Neutrophils 5.7 10^3/ul (1.5-7.7); Eosinophil % 2.2 %; Lymphocyte % 44.7 %; Nucleated Red Blood Cells % 0.1
[2019-11-10 03:01] LABS: Potassium Redraw 2.8 mmol/L (3.5-5.0)
[2019-11-10] MEDS: KCL 10 MEQ/50 ML IVPREMIX 10 MEQ/50 ML BAG IV SCH ×3 (04:20→09:40)
[2019-11-10 04:47] LABS: Calcium 8.5 mg/dL (8.6-10.3); Potassium 3.8 mmol/L (3.5-5.0)
[2019-11-10 04:52] LABS: BUN/Creatinine Ratio 9.8 (8-20); EGFR African American 130.1 (>60); EGFR Non-African American 107.6 (>60)
[2019-11-10] MEDS ORDERED: LORazepam 2 mg VIAL 1 ml IV PUSH PRN (05:27)
[2019-11-10] MEDS: Buprenorp/Nalox 8-2 MG FILM SL FILM SCH ×2 (09:53→14:07)
[2019-11-10 15:45] VITALS: BP 137/98
== END 2019-11-10 18:18 | disposition home or self-care (01) ==
LOC: MEDTELE 23:47 → ED 23:47 → MEDTELE 11-10 08:13
PROVIDERS: ADMIT Internal Medicine; ATTEND Internal Medicine

== ENCOUNTER 2020-11-25 22:58 | Inpatient (IN) ==
[2020-11-25 23:57] LABS: ABS Eosinophils 0.1 10^3/ul (0-0.6); ABS Lymphocytes 1.4 10^3/ul (1.0-4.8); ABS Monocytes 0.5 10^3/ul (0-0.8); ABS Neutrophils 5.8 10^3/ul (1.5-7.7); Eosinophil % 1.3 %; Hematocrit 43 % (42-52); Hemoglobin 14.7 g/dL (14.0-18.0); Lymphocyte % 17.6 %; Mean Corpuscular HGB Conc 34 g/dL (31-36); Mean Corpuscular Hemoglobin 32 pg (27-31); Mean Corpuscular Volume 94 fL (80-94); Mean Platelet Volume 9.1 fL (7.4-10.4); Nucleated Red Blood Cells % 0.1; Platelet Count 173 10^3/uL (150-450); Red Blood Count 4.62 10^6 /uL (4.18-5.48); Red Cell Distribution Width 13 % (10-15); White Blood Count 7.9 10^3/uL (3.5-10.8)
[2020-11-26 00:13] LABS: Albumin 4.3 g/dL (3.2-5.2); Albumin/Globulin Ratio 1.4 (1-3); Calcium 8.9 mg/dL (8.6-10.3); EGFR African American 120.1 (>60); EGFR Non-African American 99.3 (>60); Globulin 3.1 g/dL (2-4); Potassium 4.6 mmol/L (3.5-5.0); Total Bilirubin 0.3 mg/dL (0.2-1.0); Total Protein 7.4 g/dL (6.4-8.9)
[2020-11-26 00:16] LABS: INR 1.14 (0.86-1.15)
[2020-11-26] MEDS ORDERED: HYDROmorphone 1 MG/1 ML SYRINGE IV ONE ×2 (01:23→02:04)
[2020-11-26] MEDS ORDERED: Orphenadrine Citrate INJ 30 mg/ml 2 ml VIAL (60 mg) IV ONE (02:04)
[2020-11-26] MEDS ORDERED: HYDROmorphone 1 MG/1 ML SYRINGE IV SLOW PU ONE (04:37)
[2020-11-26] MEDS ORDERED: Nicotine GUM 4MG FRUIT FLAVOR PO PRN (05:18)
[2020-11-26] MEDS ORDERED: Ondansetron 4 mg VIAL 2 MG/ML 2 ml VIAL IV PRN (05:22)
[2020-11-26] MEDS ORDERED: Nicotine Lozenge mini 2 MG LOZNG.MINI MT PRN (05:49)
[2020-11-26] MEDS ORDERED: Lorazepam PYXIS KEY PRN (07:00)
[2020-11-26] MEDS ORDERED: LORazepam 2 mg VIAL 1 ml IV PUSH ONE ×2 (07:00→08:00)
[2020-11-26] MEDS: fentaNYL 100 mcg/2 ml 50 MCG/ML VIAL IV SLOW PU PRN ×4 (08:29→23:19)
[2020-11-26] MEDS ORDERED: Heparin 5000 UNITS/ML 1 mL VIAL SUBCUT ONE (09:00)
[2020-11-26] MEDS: Lithium Carbonate ER 450mg TAB PO SCH ×2 (09:39→21:21)
[2020-11-26] MEDS: Nicotine PATCH 21 MG/24 HR PATCH TRANSDERM SCH (09:40)
[2020-11-26] MEDS: Buprenorp/Nalox 4-1 MG FILM SL FILM SCH ×2 (09:40→21:19)
[2020-11-27] MEDS: Lithium Carbonate ER 450mg TAB PO SCH ×2 (09:49→20:12)
[2020-11-27] MEDS: Buprenorp/Nalox 4-1 MG FILM SL FILM SCH ×2 (09:50→20:12)
[2020-11-27] MEDS: Nicotine PATCH 21 MG/24 HR PATCH TRANSDERM SCH (09:50)
[2020-11-27] MEDS: fentaNYL 100 mcg/2 ml 50 MCG/ML VIAL IV SLOW PU PRN ×2 (16:51→22:47)
[2020-11-27 18:00] LABS: Hepatitis B Surface Antigen Nonreactive (Nonreactive)
[2020-11-27 18:05] LABS: Hepatitis A Ab IgM Negative (Negative)
[2020-11-27 18:06] LABS: Hepatitis B Core IgM Nonreactive (Nonreactive)
[2020-11-27 22:38] LABS: Hepatitis C Antibody Reactive (Negative)
[2020-11-27] MEDS ORDERED: LORazepam 2 mg VIAL 1 ml IV PUSH ONE (23:31)
[2020-11-27] MEDS ORDERED: Lorazepam PYXIS KEY PRN (23:31)
[2020-11-28] MEDS: fentaNYL 100 mcg/2 ml 50 MCG/ML VIAL IV SLOW PU PRN ×3 (02:52→23:08)
[2020-11-28 06:16] LABS: ABS Eosinophils 0.2 10^3/ul (0-0.6); ABS Lymphocytes 2.3 10^3/ul (1.0-4.8); ABS Monocytes 0.5 10^3/ul (0-0.8); ABS Neutrophils 4.3 10^3/ul (1.5-7.7); Eosinophil % 3.3 %; Hematocrit 41 % (42-52); Hemoglobin 14.3 g/dL (14.0-18.0); Lymphocyte % 31.4 %; Mean Corpuscular HGB Conc 35 g/dL (31-36); Mean Corpuscular Hemoglobin 32 pg (27-31); Mean Corpuscular Volume 93 fL (80-94); Mean Platelet Volume 9.3 fL (7.4-10.4); Platelet Count 167 10^3/uL (150-450); Red Blood Count 4.44 10^6 /uL (4.18-5.48); Red Cell Distribution Width 13 % (10-15); White Blood Count 7.5 10^3/uL (3.5-10.8)
[2020-11-28 06:32] LABS: Calcium 9.2 mg/dL (8.6-10.3); EGFR African American 118.6 (>60); Potassium 4.1 mmol/L (3.5-5.0)
[2020-11-28] MEDS: Lithium Carbonate ER 450mg TAB PO SCH ×2 (09:26→22:23)
[2020-11-28] MEDS: Nicotine PATCH 21 MG/24 HR PATCH TRANSDERM SCH (09:31)
[2020-11-28] MEDS: Buprenorp/Nalox 4-1 MG FILM SL FILM SCH ×2 (09:31→22:22)
[2020-11-28] MEDS ORDERED: Morphine 4 MG/ML VIAL (1 ml) IV ONE (10:40)
[2020-11-28] MEDS ORDERED: Morphine 2 MG/ML SYRINGE IV ONE (11:00)
[2020-11-28] MEDS ORDERED: ceFAZolin 2 GM in NS PREMIX 2 GM/100 ML BAG IVPB ONE (11:22)
[2020-11-28] MEDS ORDERED: Rocuronium 50 mg VIAL 10 mg/ml 5 ml VIAL (50 mg) ONE (12:29)
[2020-11-28] MEDS ORDERED: Propofol 10 MG/ML 20 ML BTL ONE (12:29)
[2020-11-28] MEDS ORDERED: fentaNYL 250 mcg/5 ml 50 MCG/ML 5 ml VIAL (250 MCG) ONE (12:29)
[2020-11-28] MEDS ORDERED: Midazolam 2 mg/2 ml VIAL 1 mg/ml 2 ml VIAL (2 mg) ONE (12:29)
[2020-11-28] MEDS ORDERED: Dexamethasone IV 4 MG/ML VIAL 1 ml VIAL ONE (12:29)
[2020-11-28] MEDS ORDERED: Sugammadex 500 MG/5 ML 5 ml VIAL IV PUSH ONE (12:29)
[2020-11-28] MEDS ORDERED: Lidocaine 2% PF 5 ML VIAL ONE (12:29)
[2020-11-28] MEDS ORDERED: Ondansetron 4 mg VIAL 2 MG/ML 2 ml VIAL ONE (12:29)
[2020-11-28] MEDS ORDERED: Ondansetron 4 mg VIAL 2 MG/ML 2 ml VIAL IV PRN (12:46)
[2020-11-28] MEDS ORDERED: Naloxone 0.4 mg VIAL 0.4 mg/ml 1 ml VIAL IV PRN (12:46)
[2020-11-28] MEDS ORDERED: fentaNYL 100 mcg/2 ml 50 MCG/ML VIAL IV PRN (12:46)
[2020-11-28] MEDS ORDERED: Acetaminophen IV 1 GM/100ML 100 ML IV PRN (12:46)
[2020-11-28] MEDS ORDERED: DiMENhydriNATE IV 50 mg/ml 1 ml VIAL IV PUSH PRN (12:46)
[2020-11-28] MEDS ORDERED: HYDROmorphone 1 MG/1 ML SYRINGE ONE ×2 (13:49→15:31)
[2020-11-28] MEDS ORDERED: Ketamine HCL 50 mg/ml 10 ml VIAL (500 MG) ONE (13:53)
[2020-11-28] MEDS ORDERED: fentaNYL 100 mcg/2 ml 50 MCG/ML VIAL ONE ×2 (15:00→16:31)
[2020-11-28] MEDS ORDERED: Acetaminophen IV 1 GM/100ML 100 ML IV ONE (15:31)
[2020-11-28] MEDS: HYDROmorphone 1 MG/1 ML SYRINGE IV PRN ×5 (15:32→16:45)
[2020-11-28] MEDS: ceFAZolin 1 GM X 3 DOSES POST-OP Q8H (AddVan) IVPB SCH (22:29)
[2020-11-29] MEDS: ceFAZolin 1 GM X 3 DOSES POST-OP Q8H (AddVan) IVPB SCH ×2 (05:24→13:35)
[2020-11-29 07:37] LABS: ABS Basophils 0.1 10^3/ul (0-0.2); ABS Eosinophils 0.1 10^3/ul (0-0.6); ABS Lymphocytes 1.9 10^3/ul (1.0-4.8); ABS Monocytes 0.8 10^3/ul (0-0.8); ABS Neutrophils 6.8 10^3/ul (1.5-7.7); Eosinophil % 1.3 %; Hematocrit 37 % (42-52); Hemoglobin 13.2 g/dL (14.0-18.0); Lymphocyte % 19.8 %; Mean Corpuscular HGB Conc 36 g/dL (31-36); Mean Corpuscular Hemoglobin 33 pg (27-31); Mean Corpuscular Volume 92 fL (80-94); Mean Platelet Volume 9.2 fL (7.4-10.4); Platelet Count 194 10^3/uL (150-450); Red Blood Count 4.03 10^6 /uL (4.18-5.48); Red Cell Distribution Width 13 % (10-15); White Blood Count 9.8 10^3/uL (3.5-10.8)
[2020-11-29] MEDS: Buprenorp/Nalox 4-1 MG FILM SL FILM SCH ×2 (08:18→23:26)
[2020-11-29] MEDS: Nicotine PATCH 21 MG/24 HR PATCH TRANSDERM SCH (08:19)
[2020-11-29] MEDS: Aspirin EC 325 mg TAB.EC PO SCH (08:24)
[2020-11-29] MEDS: Lithium Carbonate ER 450mg TAB PO SCH ×2 (08:24→21:03)
[2020-11-29] MEDS ORDERED: Polyethylene Glycol 3350 17 GM PACKET PO PRN (09:51)
[2020-11-29] MEDS ORDERED: Senna TAB 8.6 mg TAB PO PRN (09:51)
[2020-11-29] MEDS: Magnesium Hydroxide LIQ 30 ML UDC PO PRN (10:15)
[2020-11-29 10:23] LABS: Albumin 3.7 g/dL (3.2-5.2); Albumin/Globulin Ratio 1.3 (1-3); Calcium 8.6 mg/dL (8.6-10.3); EGFR African American 109.9 (>60); EGFR Non-African American 90.8 (>60); Globulin 2.9 g/dL (2-4); Potassium 3.7 mmol/L (3.5-5.0); Total Bilirubin 0.4 mg/dL (0.2-1.0); Total Protein 6.6 g/dL (6.4-8.9)
[2020-11-29] MEDS: fentaNYL 100 mcg/2 ml 50 MCG/ML VIAL IV SLOW PU PRN (20:57)
[2020-11-30] MEDS: Buprenorp/Nalox 4-1 MG FILM SL FILM SCH (08:50)
[2020-11-30] MEDS: Magnesium Hydroxide LIQ 30 ML UDC PO PRN (08:51)
[2020-11-30] MEDS: Aspirin EC 325 mg TAB.EC PO SCH (08:51)
[2020-11-30] MEDS: Lithium Carbonate ER 450mg TAB PO SCH (08:51)
[2020-11-30] MEDS: Nicotine PATCH 21 MG/24 HR PATCH TRANSDERM SCH (08:55)
[2020-11-30 11:18] VITALS: BP 129/77
== END 2020-11-30 13:40 | disposition home health service (06) | DRG 313 ==
LOC: ED 22:58 → SSU 11-26 05:38
PROVIDERS: ADMIT Internal Medicine; ATTEND Internal Medicine

== ENCOUNTER 2020-12-06 17:22 | Inpatient (IN) ==
[2020-12-06] MEDS ORDERED: Cefepime 1 GM in Dextrose 1 GM/50 ML BAG IV ONE (17:57)
[2020-12-06] MEDS ORDERED: NS 0.9% 1000 ml BAG 1,000 ML IV ONE (19:54)
[2020-12-06 20:25] LABS: ABS Basophils 0.1 10^3/ul (0-0.2); ABS Eosinophils 0.2 10^3/ul (0-0.6); ABS Lymphocytes 1.8 10^3/ul (1.0-4.8); ABS Monocytes 0.5 10^3/ul (0-0.8); ABS Neutrophils 5.1 10^3/ul (1.5-7.7); Eosinophil % 2.7 %; Hematocrit 37 % (42-52); Hemoglobin 12.6 g/dL (14.0-18.0); Lymphocyte % 23.5 %; Mean Corpuscular HGB Conc 34 g/dL (31-36); Mean Corpuscular Hemoglobin 32 pg (27-31); Mean Corpuscular Volume 92 fL (80-94); Mean Platelet Volume 8.4 fL (7.4-10.4); Platelet Count 338 10^3/uL (150-450); Red Cell Distribution Width 13 % (10-15); White Blood Count 7.7 10^3/uL (3.5-10.8)
[2020-12-06 20:43] LABS: Albumin 4.1 g/dL (3.2-5.2); Albumin/Globulin Ratio 1.2 (1-3); C Reactive Protein 58.05 mg/L (<8.01); Calcium 9.1 mg/dL (8.6-10.3); EGFR African American 138.3 (>60); EGFR Non-African American 114.3 (>60); Globulin 3.4 g/dL (2-4); Total Bilirubin 0.6 mg/dL (0.2-1.0); Total Protein 7.5 g/dL (6.4-8.9)
[2020-12-06] MEDS ORDERED: Lactated Ringers 1000 ml BAG 1,000 ML IV ONE (21:02)
[2020-12-06] MEDS ORDERED: Ondansetron 4 mg VIAL 2 MG/ML 2 ml VIAL IV PRN (21:02)
[2020-12-06] MEDS ORDERED: Vancomycin 1,000 MG in NS 0.9% 250 ml 250 ML IVPB ONE (21:11)
[2020-12-06 21:27] LABS: Magnesium 2.2 mg/dL (1.9-2.7)
[2020-12-06] MEDS ORDERED: Vancomycin 1,500 MG in NS 0.9% 250 ml 250 ML IVPB ONE (21:30)
[2020-12-06] MEDS ORDERED: Albuterol 2.5mg/3 ml (0.083%) NEB.SOLN INH PRN (21:30)
[2020-12-06 21:46] LABS: Erythrocyte Sed Rate 64 mm/Hr (0-14)
[2020-12-06] MEDS: Enoxaparin 40 MG/0.4 ML SYR SUBCUT SCH (21:54)
[2020-12-06] MEDS ORDERED: Nicotine Lozenge mini 2 MG LOZNG.MINI MT PRN (21:56)
[2020-12-06] MEDS ORDERED: Vancomycin per Pharmacy 1 EA NOTE FOLLOW UP SCH (22:00)
[2020-12-06] MEDS ORDERED: Lorazepam PYXIS KEY PRN (22:37)
[2020-12-06] MEDS: Lithium Carbonate ER 450mg TAB PO SCH ×2 (23:10→23:59)
[2020-12-06] MEDS: Vancomycin 1,250 MG in NS 0.9% 250 ml 250 ML IVPB SCH (23:11)
[2020-12-06] MEDS: LORazepam 2 mg VIAL 1 ml IV PUSH PRN (23:11)
[2020-12-07] MEDS: Vancomycin 1,250 MG in NS 0.9% 250 ml 250 ML IVPB SCH (00:30)
[2020-12-07] MEDS ORDERED: Vancomycin 1,250 MG in NS 0.9% 250 ml 250 ML IVPB SCH (06:00)
[2020-12-07 06:11] LABS: ABS Basophils 0.1 10^3/ul (0-0.2); ABS Eosinophils 0.3 10^3/ul (0-0.6); ABS Lymphocytes 2.2 10^3/ul (1.0-4.8); ABS Monocytes 0.6 10^3/ul (0-0.8); ABS Neutrophils 3.5 10^3/ul (1.5-7.7); Eosinophil % 4.2 %; Hematocrit 34 % (42-52); Hemoglobin 11.5 g/dL (14.0-18.0); Lymphocyte % 33.4 %; Mean Corpuscular HGB Conc 33 g/dL (31-36); Mean Corpuscular Hemoglobin 31 pg (27-31); Mean Corpuscular Volume 93 fL (80-94); Mean Platelet Volume 7.9 fL (7.4-10.4); Platelet Count 304 10^3/uL (150-450); Red Blood Count 3.71 10^6 /uL (4.18-5.48); Red Cell Distribution Width 13 % (10-15); White Blood Count 6.6 10^3/uL (3.5-10.8)
[2020-12-07 06:19] LABS: INR 1.18 (0.86-1.15)
[2020-12-07 06:30] LABS: Calcium 8.7 mg/dL (8.6-10.3); EGFR African American 138.3 (>60); EGFR Non-African American 114.3 (>60); Potassium 3.9 mmol/L (3.5-5.0)
[2020-12-07] MEDS: HYDROmorphone 1 MG/1 ML SYRINGE IV SLOW PU PRN ×3 (08:23→22:20)
[2020-12-07] MEDS: Lithium Carbonate ER 450mg TAB PO SCH ×2 (08:23→22:16)
[2020-12-07] MEDS: LORazepam 2 mg VIAL 1 ml IV PUSH PRN ×3 (08:24→22:18)
[2020-12-07] MEDS ORDERED: Buprenorp/Nalox 4-1 MG FILM SL FILM SCH (09:00)
[2020-12-07] MEDS ORDERED: Perflutren Lipid Microsphere 3 ML VIAL ONE (09:06)
[2020-12-07] MEDS: ceFAZolin VIAL 2 GM in NS 0.9% 100 ml BAG 100 ML IVPB SCH ×2 (13:36→22:18)
[2020-12-07] MEDS: Enoxaparin 40 MG/0.4 ML SYR SUBCUT SCH (22:24)
[2020-12-08] MEDS ORDERED: Vancomycin Trough Check NOTE FOLLOW UP ONE (05:30)
[2020-12-08 05:52] LABS: ABS Basophils 0.1 10^3/ul (0-0.2); ABS Eosinophils 0.2 10^3/ul (0-0.6); ABS Lymphocytes 1.9 10^3/ul (1.0-4.8); ABS Monocytes 0.5 10^3/ul (0-0.8); ABS Neutrophils 3.5 10^3/ul (1.5-7.7); Eosinophil % 3.7 %; Hematocrit 37 % (42-52); Hemoglobin 12.3 g/dL (14.0-18.0); Lymphocyte % 30.9 %; Mean Corpuscular HGB Conc 34 g/dL (31-36); Mean Corpuscular Hemoglobin 31 pg (27-31); Mean Corpuscular Volume 92 fL (80-94); Mean Platelet Volume 8.2 fL (7.4-10.4); Nucleated Red Blood Cells % 0.1; Platelet Count 329 10^3/uL (150-450); Red Blood Count 3.97 10^6 /uL (4.18-5.48); Red Cell Distribution Width 13 % (10-15); White Blood Count 6.2 10^3/uL (3.5-10.8)
[2020-12-08 06:02] LABS: EGFR African American 149.5 (>60); EGFR Non-African American 123.5 (>60)
[2020-12-08] MEDS: ceFAZolin VIAL 2 GM in NS 0.9% 100 ml BAG 100 ML IVPB SCH ×2 (06:24→13:23)
[2020-12-08] MEDS: LORazepam 2 mg VIAL 1 ml IV PUSH PRN (07:59)
[2020-12-08] MEDS: HYDROmorphone 1 MG/1 ML SYRINGE IV SLOW PU PRN (08:00)
[2020-12-08] MEDS ORDERED: Midazolam 5 mg/5 ml VIAL 1 mg/ml 5 ml VIAL (5 mg) ONE (09:11)
[2020-12-08] MEDS ORDERED: Propofol 10 MG/ML 20 ML BTL ONE (09:11)
[2020-12-08] MEDS ORDERED: Rocuronium 50 mg VIAL 10 mg/ml 5 ml VIAL (50 mg) ONE (09:11)
[2020-12-08] MEDS ORDERED: fentaNYL 100 mcg/2 ml 50 MCG/ML VIAL ONE (09:11)
[2020-12-08] MEDS ORDERED: Lidocaine 2% PF 5 ML VIAL ONE (09:11)
[2020-12-08] MEDS ORDERED: oxyCODONE/Acetamin 5/325 mg TAB PO PRN (09:53)
[2020-12-08] MEDS ORDERED: Prochlorperazine 5 mg/ml 2 ml VIAL (10 mg) IV PRN (09:53)
[2020-12-08] MEDS ORDERED: fentaNYL 100 mcg/2 ml 50 MCG/ML VIAL IV PRN (09:53)
[2020-12-08] MEDS ORDERED: HYDROcodone/ACETAMIN 5/325 mg TAB PO PRN (09:53)
[2020-12-08] MEDS ORDERED: Naloxone 0.4 mg VIAL 0.4 mg/ml 1 ml VIAL IV PRN (09:53)
[2020-12-08] MEDS ORDERED: Sugammadex 500 MG/5 ML 5 ml VIAL IV PUSH ONE (10:59)
[2020-12-08] MEDS: Lithium Carbonate ER 450mg TAB PO SCH (12:11)
[2020-12-08 12:46] VITALS: BP 131/86
== END 2020-12-08 14:55 | disposition home or self-care (01) | DRG 724 ==
LOC: ED 17:22 → SUATTDRO 21:39 → SSU 21:39
PROVIDERS: ADMIT Student in an Organized Health Care Education/Training Program; ATTEND Internal Medicine
PROC: O.CATEE (2020-12-08 09:00)